=== PATIENT | female | born 1970 | race Caucasian/White ===

== ENCOUNTER 2017-02-20 09:17 | Emergency (ER) | payer MEDICAID, OTHER ==
[2017-02-20] MEDS: IBUPROFEN 800 MG TAB PO (11:35)
== END 2017-02-20 13:49 | disposition home or self-care (01) ==
LOC: FTE 09:17
DX: S52.021A Displaced fracture of olecranon process without intraarticular extension of right ulna, initial encounter for closed fracture (principal); V87.7XXA Person injured in collision between other specified motor vehicles (traffic), initial encounter
CPT/HCPCS: 29105; 73080-RT; 99283-25